=== PATIENT | male | born 2000 | race African-American/Black ===

== ENCOUNTER 2023-07-15 19:08 | Emergency (ER) | payer OTHER ==
[2023-07-15 19:21] VITALS: O2SAT 100
--- NOTE | 2023-07-15 19:24 | ED Physician Documentation ---
PD HPI DYSPNEA - Stated complaint Stated Complaint: SMOKE INHALATION - Chief complaint Chief Complaint: Resp - History obtained from History obtained from: Patient - Additional information Additional information: A few minutes after 4 PM today he inhaled Skydrol PE 5 hydraulic fluid. He is [employer]. Has a history of mild asthma. Initially was coughing a lot and short of breath, feeling better now albeit not quite resolved. PD PAST MEDICAL HISTORY - Past Medical History Past Medical History: Yes Cardiovascular: None Respiratory: Other Neuro: None Endocrine/Autoimmune: None GI: None : None HEENT: Other Psych: None Musculoskeletal: None Derm: None Other Past Medical History: ALLERGIC RHINITIS W ALBUTEROL USE ? - Past Surgical History Past Surgical History: Yes - Allergies Allergies/Adverse Reactions: Allergies Allergy/AdvReac Type Severity Reaction Status Date / Time tree nut Allergy Anaphylaxis Verified 07/15/23 19:15 tree and shrub pollen AdvReac Respiratory Verified 07/15/23 19:15 - Social History Does the pt smoke?: No Smoking Status: Never smoker Does the pt drink ETOH?: No Does the pt have substance abuse?: No - Immunizations Immunizations are current?: Yes - POLST Patient has POLST: No PD ED PE NORMAL - Vitals Vital signs reviewed: Yes - General General: Alert and oriented X 3, No acute distress - Neck Neck: Supple, no meningeal sign, No bony TTP - Cardiac Cardiac: RRR, No murmur - Respiratory Respiratory: No respiratory distress, Clear bilaterally - Neuro Neuro: Alert and oriented X 3, Normal speech - Psych Psych: Normal mood, Normal affect Results - Vitals Vitals: Vital Signs - 24 hr 07/15/23 07/15/23 19:11 20:16 Temperature 36.7 C Heart Rate 84 70 Respiratory 20 19 Rate Blood Pressure 151/81 H 139/79 H O2 Saturation 100 100 Oxygen O2 Source Room air PD Medical Decision Making - ED course ED course: I called poison control shortly after their arrival. They do note with this product there are very occasional cases of delayed pulmonary edema and recommended observation for several hours. He is improving now and the actual exposure was about 3 hours before arrival. We will observe him for another hour. He is feeling better. He was observed until about 8:15 PM at which time he was feeling well and on reexamination had clear lungs and normal pulse oximetry. Departure - Departure Disposition: Home, Self Care Clinical Impression: Inhalation injury Condition: Good Instructions: ED Inhalation Chemical Comments: Call your doctor to arrange a follow-up appointment, make the next available appointment. In the interim, return anytime if worse or if new symptoms develop. Forms: PCP List Discharge Date/Time: 07/15/23 20:15
[2023-07-15 20:24] VITALS: BP 139/79
== END 2023-07-15 20:15 | disposition home or self-care (01) ==
LOC: EDBD → ED 19:08
DX: T59.891A Toxic effect of other specified gases, fumes and vapors, accidental (unintentional), initial encounter (principal); X14.0XXA Inhalation of hot air and gases, initial encounter; Y99.1 Military activity
CPT/HCPCS: 99282; 99283

== ENCOUNTER 2023-11-09 23:51 | Emergency (ER) | payer OTHER ==
[2023-11-10 00:15] VITALS: O2SAT 100
--- NOTE | 2023-11-10 02:17 | ED Physician Documentation ---
PD HPI HEENT - Stated complaint Stated Complaint: R EAR PX - Chief complaint Chief Complaint: Heent - History obtained from History obtained from: Patient - Additional information Additional information: HPI from patient. Patient complains of decreased hearing from the right ear over the past 4 to 5 days. He denies pain, denies injury, denies history of similar symptoms. Review of Systems Ears: reports: Loss of hearing. denies: Ear pain, Drainage/discharge, Tinnitus/ringing PD PAST MEDICAL HISTORY - Past Medical History Past Medical History: Yes Cardiovascular: None Respiratory: Other Neuro: None Endocrine/Autoimmune: None GI: None : None HEENT: Other Psych: None Musculoskeletal: None Derm: None - Past Surgical History Past Surgical History: Yes - Present Medications Home Medications: Ambulatory Orders Medication Instructions Recorded Confirmed Montelukast [Singulair] 10 mg PO DAILY 11/09/23 - Allergies Allergies/Adverse Reactions: Allergies Allergy/AdvReac Type Severity Reaction Status Date / Time tree nut Allergy Anaphylaxis Verified 11/09/23 23:58 tree and shrub pollen AdvReac Respiratory Verified 11/09/23 23:58 - Social History Does the pt smoke?: No Smoking Status: Never smoker Does the pt drink ETOH?: No Does the pt have substance abuse?: No - Immunizations Immunizations are current?: Yes - POLST Patient has POLST: No PD ED PE NORMAL - Vitals Vital signs reviewed: Yes - General General: Alert and oriented X 3, No acute distress, Well developed/nourished PD ED PE EXPANDED - HEENT HEENT: Other (left EAC with cerumen competely obscuring view of TM. normal left EAC) Results - Vitals Vitals: Oxygen O2 Source Room air PD Medical Decision Making - ED course Complexity details: considered differential, d/w patient ED course: Gentle irrigation of the right external auditory canal resulted in return of cerumen particles. 50 cc of warm tap water was irrigated into the canal. On reexamination, the entirety of the EAC and the TM is visible. There were no abnormalities of either of these anatomic structures. There is no cerumen remaining after the irrigation. Patient reports improvement in hearing. Departure - Departure Disposition: 01 Home, Self Care Clinical Impression: Impacted cerumen Condition: Good Instructions: ED Earwax Removal Comments: I was able to remove all of the earwax from your right ear canal. This should lead to resolution of the muffled hearing; as we discussed, if you continue to have decreased hearing on that side after another 2 or 3 days, you should follow-up with your primary care provider for reevaluation. Another possible explanation, should the muffled hearing persist, would be fluid trapped on the other side of the eardrum. Typically this is something that would resolve but can take days or even 1 or 2 weeks to do so, but you would benefit from follow- up with your primary care provider. Forms: PCP List Discharge Date/Time: 11/10/23 03:11
[2023-11-10 03:18] VITALS: BP 146/79
== END 2023-11-10 03:11 | disposition home or self-care (01) ==
LOC: ED 23:51
DX: H61.21 Impacted cerumen, right ear (principal); Z79.899 Other long term (current) drug therapy
CPT/HCPCS: 69209; 99283; 99284

== ENCOUNTER 2024-03-21 08:00 | Outpatient (CLI) | payer OTHER | END 2024-03-21 23:59 | disposition home or self-care (01) | LOC: LAB.N 08:00 | PROVIDERS: ATTEND Physician Assistant | DX: R07.0 Pain in throat (principal) | CPT/HCPCS: 87070 ==